=== PATIENT | female | born 1990 | race Caucasian/White ===

== ENCOUNTER 2016-10-22 09:16 | Emergency (ER) | payer OTHER ==
[2016-10-22 11:43] LABS: INR 0.95 (0.9-1.2); PROTHROMBIN TIME 12.3 SECONDS (11.7-14.0)
[2016-10-22 11:45] LABS: D-DIMER < 0.27 ug/mLFEU (0.00-0.41)
[2016-10-22 11:47] LABS: CREATININE 0.7 mg/dL (0.5-1.0); POTASSIUM 3.7 mmol/L (3.5-5.1)
== END 2016-10-22 12:01 | disposition home or self-care (01) ==
LOC: FER 09:16
PROVIDERS: Emergency Medicine
DX: M79.605 Pain in left leg (principal); M79.604 Pain in right leg; Z87.19 Personal history of other diseases of the digestive system; Z88.2 Allergy status to sulfonamides
CPT/HCPCS: 36415; 80048; 85379; 85610; 85730; 99283